=== PATIENT | female | born 1960 | race Caucasian/White ===

== ENCOUNTER → 2016-09-12 | Outpatient (CLI) | payer BC ==
--- NOTE | 2016-09-12 18:02 | MR ---
EXAMINATION TYPE: MR shoulder RT wo con DATE OF EXAM: 09/12/2016 5:31 PM COMPARISON: NONE HISTORY: Pain in right shoulder TECHNIQUE: Multiplanar, multisequence imaging of the right shoulder is performed without contrast. FINDINGS: Rotator Cuff: There is increased signal along the bursal surface of the distal margin of the supraspi natus tendon primarily involving the anterior fibers compatible with partial tear with no retraction. No through thickness tear identified. Acromioclavicular Joint: Mild hypertrophic change of the AC joint. There is mass effect upon the rota tor cuff secondary to a spur involving the inferior margin of the clavicle. Glenohumeral Joint: Joint spaces preserved. Inferior glenohumeral ligament intact. Although there is slight ill-definition of the ligament. Mild surrounding edema. Labrum: Findings are suggestive of anterior superior labral tear. Biceps Tendon: The long head of biceps is in normal location within bicipital groove. Increased fluid surrounding the biceps tendon compatible with bicipital tendinosis Bone marrow signal: Cystic changes involving the humeral head likely related to chronic impingement. Other: No additional significant abnormality is appreciated. IMPRESSION: 1. There is a partial bursal surface tear distal margin anterior fibers supraspinatus tendon with no retraction. 2. Anterior superior labral tear 3. Slight ill-definition of the inferior glenohumeral ligament without evidence of tear correlate for grade 1 sprain.
== END | disposition home or self-care (01) ==
LOC: RADMRIMAIN 16:15
PROVIDERS: ATTEND Orthopaedic Surgery
DX: M75.111 Incomplete rotator cuff tear or rupture of right shoulder, not specified as traumatic (principal); S43.431A Superior glenoid labrum lesion of right shoulder, initial encounter

== ENCOUNTER 2019-10-05 08:04 | Day surgery (SDC) | payer BC ==
[2019-10-03 10:32] VITALS: BMI 24.2
[~2019-10-05 08:04] MED LIST: LACTATED RINGERS 1,000 ML IV SCH; LIDOCAINE 1% 20 ML VIAL (10MG/ML) FOR IV START INTRADERMA PRN
[2019-10-05 08:35] VITALS: RESP 16; TEMP 98.1
--- NOTE | 2019-10-05 08:38 | P.GSHP ---
History of Present Illness H&P Date: 10/05/19 CHIEF COMPLAINT: Colon screen HISTORY OF PRESENT ILLNESS: The patient is a 59-year-old female who presents for colon screen. Lower endoscopy was offered for further evaluation and management. PAST MEDICAL HISTORY: Please see list. PAST SURGICAL HISTORY: Please see list. MEDICATIONS: Please see list. ALLERGIES: Please see list. SOCIAL HISTORY: No illicit drug use FAMILY HISTORY: No reports of Crohn disease or ulcerative colitis. REVIEW OF ORGAN SYSTEMS: CONSTITUTIONAL: No reports of fevers or chills. PHYSICAL EXAM: VITAL SIGNS: Stable GENERAL: Well-developed pleasant in no acute distress. HEENT: No scleral icterus. Extraocular movements grossly intact. Moist buccal mucosa. NECK: Supple without lymphadenopathy. CHEST: Unlabored respirations. Equal bilateral excursions. CARDIOVASCULAR: Regular rate and rhythm. Distal 2+ pulses. ABDOMEN: Soft, nontender, nondistended. MUSCULOSKELETAL: No clubbing, cyanosis, or edema. ASSESSMENT: 1. Colon screen. PLAN: 1. Recommend proceeding with a lower endoscopy Past Medical History Past Medical History: Neurologic Disorder Additional Past Medical History / Comment(s): change in bowel habits, hx. migraines, hx. left bundle branch block History of Any Multi-Drug Resistant Organisms: None Reported Past Surgical History: Orthopedic Surgery Additional Past Surgical History / Comment(s): bilat bunion surg., retinal re- attachment right eye, LT ROTATOR CUFF REPAIR WITH MANIPULATION, COLONOSCOPY Past Anesthesia/Blood Transfusion Reactions: Motion Sickness Smoking Status: Never smoker - Past Family History Father Family Medical History: Cancer Additional Family Medical History / Comment(s): skin Mother Family Medical History: Cancer Additional Family Medical History / Comment(s): breast Sister(s) Family Medical History: Cancer Additional Family Medical History / Comment(s): thyroid Medications and Allergies Home Medications Medication Instructions Recorded Confirmed Type Calcium Carbonate [Calcium] 500 mg PO DAILY 10/03/19 10/03/19 History Retinavites Eye Supp 1 tab PO DAILY 10/03/19 History Allergies Allergy/AdvReac Type Severity Reaction Status Date / Time amoxicillin Allergy Rash/Hives Verified 10/03/19 10:26 Surgical - Exam Vital Signs Temp Pulse Resp BP Pulse Ox 98.1 F 89 16 150/88 99 10/05/19 08:34 10/05/19 08:34 10/05/19 08:34 10/05/19 08:34 10/05/19 08:34
[2019-10-05] MEDS ORDERED: LIDOCAINE 1% INJ 10MG/ML (20 ML MDV) ONE (09:02)
[2019-10-05] MEDS ORDERED: PROPOFOL 10 MG/ML 20 ML VIAL IV ONE (09:02)
--- NOTE | 2019-10-05 09:28 | P.PCN ---
Date of Procedure: 10/05/19 Description of Procedure: PREOPERATIVE DIAGNOSIS: Personal history of colon polyps Colonoscopy screening POSTOPERATIVE DIAGNOSIS: Personal history of colon polyps Colonoscopy screening Tubular adenoma transverse colon Internal hemorrhoids, grade 2 Anal fissure OPERATION: Colonoscopy to the ileocecal valve and appendiceal orifice. Colonoscopy with hot snare polypectomies SURGEON: Aniyah Vargas MD. ANESTHESIA: MAC. INDICATIONS: The patient is an 59-year-old female who presents personal history of colon polyps. Last colonoscopy 5 years. Benefits and risks were described and informed consent was obtained. DESCRIPTION OF PROCEDURE: The patient had undergone Suprep. She had been brought into the operating room and laid in the left lateral decubitus position. After adequate intravenous sedation, the rectum was examined with 2% lidocaine jelly. No external hemorrhoids were encountered. The rectal tone was within normal limits. No lesions were palpated in the rectal vault. An Olympus colonoscope was advanced until the ileocecal valve and appendiceal orifice were clearly viewed. The prep was good. No sigmoid diverticulosis was encountered. Large mid transverse colon polyp was snare polypectomy. No evidence of focal colitis was found. Retroflexion of the scope demonstrated grade 2 internal hemorrhoids without active bleeding or inflammation and anal fissure acute. The colon was desufflated. The patient had tolerated the procedure well. Withdrawal time was over 6 minutes. FINDINGS: Aronchick preparation quality scale 2 (1-5) Internal hemorrhoids, grade 2 No external hemorrhoids No arteriovenous malformations. No sigmoid diverticulosis Acute anal fissure Removal of 1 polyp: - Snare polypectomy mid transverse colon, 8 mm tubulovillous adenoma polyp. No focal colitis. RECOMMENDATIONS: Repeat colonoscopy in 3 years2022 Plan - Discharge Summary Discharge Rx Participant: No New Discharge Prescriptions: No Action Retinavites Eye Supp 1 tab PO DAILY Calcium Carbonate [Calcium] 500 mg PO DAILY Discharge Medication List Calcium Carbonate [Calcium] 500 mg PO DAILY 10/03/19 [History] Retinavites Eye Supp 1 tab PO DAILY 10/03/19 [History] Follow up Appointment(s)/Referral(s): Aniyah Vargas MD [STAFF PHYSICIAN] - As Needed Patient Instructions/Handouts: Colorectal Polyps (DC), Anal Fissure (GEN) Activity/Diet/Wound Care/Special Instructions: Repeat colonoscopy 3 years, 2022. Discharge Disposition: HOME SELF-CARE
[2019-10-05 09:44] VITALS: BP 135/87; PULSE 88
== END 2019-10-05 10:06 | disposition home or self-care (01) ==
LOC: ORWHC2ENDO 08:04
PROVIDERS: ATTEND Surgery Plastic and Reconstructive Surgery
DX: Z12.11 Encounter for screening for malignant neoplasm of colon (principal); D12.3 Benign neoplasm of transverse colon; K60.2 Anal fissure, unspecified; K64.1 Second degree hemorrhoids; Z86.010 Personal history of colon polyps; G43.909 Migraine, unspecified, not intractable, without status migrainosus; Z88.0 Allergy status to penicillin; Z80.8 Family history of malignant neoplasm of other organs or systems; Z80.3 Family history of malignant neoplasm of breast; Z86.79 Personal history of other diseases of the circulatory system; Z79.899 Other long term (current) drug therapy
CPT/HCPCS: 88305; 45385; J2001; J2704